=== PATIENT | female | born 1980 | race Two or more races ===

== ENCOUNTER 2017-12-01 09:16 | Emergency (ER) | payer MEDICAID, OTHER, SELFPAY ==
[~2017-12-01] VITALS: Ht 160 cm; Wt 72.0 kg
[2017-12-01] MEDS ORDERED: CLON-365 PO (09:34)
[2017-12-01] MEDS ORDERED: METH40TA3 PO (09:34)
[2017-12-01] MEDS ORDERED: OLAN10TA3 PO (09:34)
[2017-12-01] MEDS ORDERED: GABA300C10 PO (09:34)
[2017-12-01 09:55] LABS: BASOPHILS # (AUTO) 0.03 x10^3/uL (0-0.1); BASOPHILS % (AUTO) 0 % (0-1); EOSINOPHILS # (AUTO) 0.01 x10^3/uL (0-0.4); EOSINOPHILS % (AUTO) 0 % (1-7); LYMPHOCYTES # (AUTO) 1.03 x10^3/uL (1-3.4); LYMPHOCYTES % (AUTO) 12 % (22-44); MD NO; MEAN CORPUSCULAR HEMOGLOBIN 28.9 pg (27.0-34.8); MEAN CORPUSCULAR HGB CONC 32.9 g/dL (32.4-35.8); MEAN CORPUSCULAR VOLUME 87.9 fL (80-100); MEAN PLATELET VOLUME 7.2 fL (7.4-10.4); MONOCYTES # (AUTO) 0.28 x10^3/uL (0.2-0.8); MONOCYTES % (AUTO) 3 % (2-9); NEUTROPHILS # (AUTO) 7.38 x10^3/uL (1.8-6.8); NEUTROPHILS % (AUTO) 85 % (42-75); PLATELET COUNT 311 x10^3/uL (130-400); RED BLOOD COUNT 4.71 x10^6/uL (3.82-5.3); RED CELL DISTRIBUTION WIDTH 14.5 % (9.6-15.2)
[2017-12-01 10:12] LABS: ALANINE AMINOTRANSFERASE 24 U/L (12-78); ALBUMIN 3.3 g/dL (3.4-5.0); ANION GAP 9 mmol/L (5-15); CALCIUM 8.1 mg/dL (8.5-10.1); CHLORIDE 111 mmol/L (98-107); SALICYLATE LEVEL < 1.7 mg/dL (2.8-20.0)
[2017-12-01 10:17] LABS: ALKALINE PHOSPHATASE 105 U/L (45-117); BILIRUBIN,TOTAL 0.4 mg/dL (0.2-1.0); CREATININE 0.76 mg/dL (0.55-1.02); TOTAL PROTEIN 7.1 g/dL (6.4-8.2)
[2017-12-01 10:18] LABS: ACETAMINOPHEN < 2 mcg/mL (10-30)
[2017-12-01 11:03] VITALS: BP 122/72
[2017-12-01 11:08] LABS: AMPHETAMINE SCREEN, URINE Positive (Negative); BARBITURATE SCREEN, URINE Negative (Negative); BENZODIAZEPINE SCREEN, URINE Negative (Negative); CANNABINOID SCREEN, URINE Negative (Negative); COCAINE SCREEN, URINE Negative (Negative); METHADONE SCREEN, URINE Positive (Negative); OPIATE SCREEN, URINE Negative (Negative)
[2017-12-01 11:11] LABS: MICROSCOPIC NOT IND
[2017-12-01 11:14] LABS: CULTURE INDICATED? NO
== END 2017-12-01 11:15 | disposition home or self-care (01) ==
LOC: ED 09:43
DX: R41.82 Altered mental status, unspecified (principal); F41.9 Anxiety disorder, unspecified; F31.9 Bipolar disorder, unspecified; Z02.89 Encounter for other administrative examinations
CPT/HCPCS: 36415; 51701; 70450; 80053; 80307; 80329; 81003; 82140; 84703; 85025; 93005; 99285; G0480; P9612

== ENCOUNTER 2018-02-16 20:15 | Emergency (ER) | payer MEDICAID, OTHER ==
[~2018-02-16] VITALS: Ht 160 cm; Wt 69.0 kg
[~2018-02-16 20:15] MED LIST: CLON-365 PO; GABA300C10 PO; METH40TA3 PO; OLAN10TA3 PO
[2018-02-16 20:19] VITALS: BP 120/81
[2018-02-16] MEDS ORDERED: CLON0.5T PO (21:15)
== END 2018-02-16 21:26 | disposition home or self-care (01) ==
LOC: ED 21:25
DX: R05 Cough (principal)
CPT/HCPCS: 71046; 99284